=== PATIENT | male | born 1935 | race Hispanic/Latino ===

== ENCOUNTER 2018-08-26 04:14 | Emergency (ER) | payer MEDICARE ==
[2018-08-26 04:23] VITALS: BMI 26.8
--- NOTE | 2018-08-26 04:47 | ED PDOC ---
Arrival/HPI - General Chief Complaint: Dizziness/Lightheaded Time Seen by Provider: 08/26/18 04:15 Historian: Patient - History of Present Illness Narrative History of Present Illness (Text): 08/26/18 04:44 82 year old male, with no significant past medical history, who presents to the Emergency department complaining of dizziness. Patient states upon ambulation,felt lightheaded and fell to the ground. Patient states he feels weak everything is spinning. Patient denies any known head trauma/loc, fever, chills, chest pain, shortness of breath, nausea, vomiting, diarrhea, back pain, neck pain, or any other complaints. Time/Duration: 4-6 hours Symptom Onset: Gradual Symptom Course: Unchanged Activities at Onset: Light Context: Home Past Medical History - Provider Review Nursing Documentation Reviewed: Yes - Psychiatric Hx Substance Use: No Family/Social History - Physician Review Nursing Documentation Reviewed: Yes Family/Social History: Unknown Family HX Smoking Status: Never Smoked Hx Alcohol Use: No Hx Substance Use: No Allergies/Home Meds Allergies/Adverse Reactions: Allergies No Known Allergies Allergy (Verified 08/26/18 04:23) Review of Systems - Physician Review All systems were reviewed & negative as marked: Yes - Review of Systems Constitutional: Normal Eyes: Normal ENT: Normal Respiratory: Normal Cardiovascular: Normal. absent: Chest Pain Gastrointestinal: Normal. absent: Abdominal Pain, Diarrhea, Nausea, Vomiting Genitourinary Male: Normal. absent: Dysuria, Frequency Musculoskeletal: Normal. absent: Back Pain, Neck Pain Skin: Normal. absent: Rash Neurological: Dizziness Endocrine: Normal Hemo/Lymphatic: Normal Psychiatric: Normal Physical Exam Vital Signs Reviewed: Yes Vital Signs Temp Pulse Resp BP Pulse Ox 08/26/18 04:32 98.2 F 76 18 198/91 H 100 Temperature: Afebrile Blood Pressure: Hypertensive Pulse: Regular Respiratory Rate: Normal Appearance: Positive for: Well-Appearing, Non-Toxic, Comfortable Pain Distress: None Mental Status: Positive for: Alert and Oriented X 3 - Systems Exam Head: Present: Atraumatic, Normocephalic Pupils: Present: PERRL Extroacular Muscles: Present: EOMI, Other (no nystagmus) Conjunctiva: Present: Normal Mouth: Present: Moist Mucous Membranes Neck: Present: Normal Range of Motion Respiratory/Chest: Present: Clear to Auscultation, Good Air Exchange. No: Respiratory Distress, Accessory Muscle Use Cardiovascular: Present: Regular Rate and Rhythm, Normal S1, S2. No: Murmurs Abdomen: No: Tenderness, Distention, Peritoneal Signs Back: Present: Normal Inspection Upper Extremity: Present: Normal Inspection. No: Cyanosis, Edema Lower Extremity: Present: Normal Inspection. No: Edema Neurological: Present: GCS=15, CN II-XII Intact, Speech Normal Skin: Present: Warm, Dry, Normal Color. No: Rashes Psychiatric: Present: Alert, Oriented x 3, Normal Insight, Normal Concentration Medical Decision Making ED Course and Treatment: 08/26/18 04:48 Impression: 82 year old female presents to the Emergency department complaining of dizziness/fall x today. Plan: -- CT Head -- EKG -- Cardiac ISO -- Labs -- Chest X-ray -- Antivert -- Reassess and disposition Progress Notes: 08/26/18 06:[address] was [address]Perveen munoz. - RAD Interpretation Narrative RAD Interpretations (Text): 08/26/18 06:26 CXR-No acute process Radiology Orders: 08/26/18 04:32 HEAD W/O CONTRAST [CT] Stat 08/26/18 04:33 CHEST PORTABLE [RAD] Stat Client Relations Specialist: ED Physician - EKG Interpretation EKG Interpretation (Text): 08/26/18 04:35 EKG-NSR@72,no acute process Interpreted by ED Physician: Yes Type: 12 lead EKG - Medication Orders Current Medication Orders: Discontinued Medications Meclizine HCl (Antivert) 25 mg PO STAT STA Stop: 08/26/18 04:41 - Scribe Statement The provider has reviewed the documentation as recorded by the Ediibrocio Driscoll All medical record entries made by the Ediibrocio were at my direction and personally dictated by me. I have reviewed the chart and agree that the record accurately reflects my personal performance of the history, physical exam, medical decision making, and the department course for this patient. I have also personally directed, reviewed, and agree with the discharge instructions and disposition. Disposition/Present on Arrival - Present on Arrival Any Indicators Present on Arrival: No History of DVT/PE: No History of Uncontrolled Diabetes: No Urinary Catheter: No History of Decub. Ulcer: No History Surgical Site Infection Following: None - Disposition Have Diagnosis and Disposition been Completed?: Yes Diagnosis: Vertigo, Near syncope, Hyperkalemia Disposition: HOSPITALIZED Disposition Time: 06:49 Patient Plan: Observation Condition: STABLE
[2018-08-26 05:57] LABS: HEMOGLOBIN 13.9 g/dL (14.0-18.0); MEAN CORPUSCULAR HEMOGLOBIN 32.4 pg (25.0-35.0); MEAN CORPUSCULAR HGB CONC 33.4 g/dl (31.0-37.0); MEAN PLATELET VOLUME 11.3 fl (7.0-11.0); RBC 4.29 10^6/uL (3.5-6.1); WHITE BLOOD COUNT 6.2 10^3/uL (4.5-11.0)
[2018-08-26 06:00] LABS: INR 0.92; PARTIAL THROMBOPLASTIN TIME 25.8 Seconds (25.1-36.5); PROTHROMBIN TIME 10.6 SECONDS (9.4-12.5)
[2018-08-26 06:30] LABS: TROPONIN I < 0.01 ng/mL
[2018-08-26 06:32] LABS: ALB/GLOB RATIO 1.2 (1.1-1.8); ALBUMIN 4.1 g/dL (3.0-4.8); ALT/SGPT 22 U/L (7-56); AST/SGOT 33 U/L (17-59); BLOOD UREA NITROGEN 20 mg/dL (7-21); CALCIUM 9.5 mg/dL (8.4-10.5); GFR NON-AFRICAN AMERICAN 58
[2018-08-26] MEDS ORDERED: Sod Polystyrene Sulf 15 gm/60 ml Susp PO ONE (06:40)
--- NOTE | 2018-08-26 08:31 | RAD ---
HISTORY: dizzy COMPARISON: None available. TECHNIQUE: Chest, one view. FINDINGS: LUNGS: No focal consolidation. Please note that chest x-ray has limited sensitivity for the detection of pulmonary masses. PLEURA: No significant pleural effusion identified. No definite pneumothorax . CARDIOVASCULAR: Borderline cardiomegaly. Enlarged ectatic aorta. Atherosclerotic calcifications present. OSSEOUS STRUCTURES: Osseous demineralization. Degenerative changes. VISUALIZED UPPER ABDOMEN: Unremarkable. OTHER FINDINGS: None. IMPRESSION: No focal consolidation. Borderline cardiomegaly. Enlarged ectatic aorta. Atherosclerotic calcifications present.
[2018-08-26 09:53] VITALS: RESP 19; TEMP 98; O2SAT 99
--- NOTE | 2018-08-26 10:03 | CT ---
Date of service: 08/26/2018 PROCEDURE: CT HEAD WITHOUT CONTRAST. HISTORY: dizzy COMPARISON: None available. TECHNIQUE: Axial computed tomography images were obtained through the head/brain without intravenous contrast. Radiation dose: Total exam DLP = 850.77 mGy-cm. This CT exam was performed using one or more of the following dose reduction techniques: Automated exposure control, adjustment of the mA and/or kV according to patient size, and/or use of iterative reconstruction technique. FINDINGS: HEMORRHAGE: No intracranial hemorrhage. BRAIN: Diffuse atrophy with prominence of the ventricles and sulci noted. No mass effect or edema. Bilateral basal ganglia calcifications. Intracranial atherosclerosis. Scattered periventricular and subcortical white matter hypodensities, which are nonspecific, but often seen with chronic microvascular ischemic disease. Please note that MRI with diffusion imaging is more sensitive in the detection of acute ischemic event. VENTRICLES: No hydrocephalus. CALVARIUM: Unremarkable. PARANASAL SINUSES: Unremarkable as visualized. No significant inflammatory changes. MASTOID AIR CELLS: Unremarkable as visualized. No inflammatory changes. OTHER FINDINGS: Probable cerumen bilateral external auditory canals. IMPRESSION: Generalized atrophy. Nonspecific white matter changes. Preliminary impression was provided by [facility].
[2018-08-26 11:42] LABS: HDL CHOLESTEROL 41 mg/dL (29-60)
[2018-08-26 11:53] LABS: LDL CHOLESTEROL 83 mg/dL (0-129); TROPONIN I < 0.01 ng/mL
[2018-08-26 12:54] VITALS: BP 119/53; PULSE 75
--- NOTE | 2018-08-26 18:37 | CARD ---
APPROVED REPORT Date of service: 08/26/2018 EKG Measurement Heart [id number] SD [id number] <Conclusion> Normal sinus rhythm Normal ECG
== END 2018-08-26 12:52 | disposition left against medical advice (07) ==
LOC: ED 04:14 → UNDOADMOB 07:02 → ERH 07:02
DX: E87.5 Hyperkalemia (principal); R42 Dizziness and giddiness; R55 Syncope and collapse